=== PATIENT | female | born 1935 | race Caucasian/White ===

== ENCOUNTER 2017-06-12 23:25 | Emergency (ER) | payer MEDICARE, MEDICAID ==
[~2017-06-12 23:25] MED LIST: ACET-1008 PO; ALBU2.5V13 NEB; ARIP5TAB4 PO; ASPI-1265 PO; BIOT25008 PO; BUDE10.2 INH; CHOL2000 PO; CYAN100T PO; FURO-149 PO; GABA100C PO; LAMO100T2 PO; LOSA50TA3 PO; MULT-1074 PO; POLY17PO10 PO; PRAM0.5T3 PO; SERT50TA PO; TERB250T85 PO; TIZA-248 PO
[2017-06-12] MEDS ORDERED: normal saline 1000ML IV soln IVB ONE (23:55)
[2017-06-13] MEDS: potassium 10mEq/100ml NS w/LIDOcaine (10mg/bag) IV SCH ×2 (01:15→01:27)
[2017-06-13 01:29] LABS: CLARITY,URINE SLIGHTLY CLOUDY (Clear); COLOR,URINE AMBER (Yellow); GLUCOSE, URINE NEGATIVE (Neg); KETONES,URINE NEGATIVE (Neg); LEUKOCYTE ESTERASE ,URINE TRACE (Neg); NITRITES, URINE NEGATIVE (Neg); OCCULT BLOOD,URINE TRACE-INTACT (Neg); PH,URINE 5.5 (4.8-8.0); PROTEIN,URINE NEGATIVE (Neg); UROBILINOGEN,URINE 0.2 E.U/dL (0.2-1.0)
[2017-06-13 01:58] LABS: UA COLLECTION TYPE STRAIGHT CATH
[2017-06-13 02:06] LABS: RBC,URINE 0-2 /HPF (0-2); WBC,URINE 0-4 /HPF (0-4)
[2017-06-13 02:08] LABS: AMORPHOUS URATES 1+; BACTERIA,URINE FEW /HPF (Neg); MUCUS STRANDS MODERATE /LPF (Neg); SQUAMOUS EPITHELIAL CELL,UR FEW /LPF (FEW)
[2017-06-13 02:09] LABS: ALBUMIN 3.1 G/DL (3.4-5.0); ANION GAP 6 (8-16); BILIRUBIN,TOTAL 0.3 MG/DL (0.1-1.0); BLOOD UREA NITROGEN 33 MG/DL (7-18); BUN/CREATININE RATIO 33.3 (6.6-38.0); CALCIUM 8.6 MG/DL (8.5-10.1); CHLORIDE 98 MMOL/L (99-107); CREATININE 0.99 MG/DL (0.40-0.90); GLUCOSE 72 MG/DL (70-104); MAGNESIUM 2.2 MG/DL (1.5-2.4); PHOSPHORUS 5.2 MG/DL (2.3-4.5); POTASSIUM 4.6 MMOL/L (3.5-5.1); SODIUM 132 MMOL/L (135-145); TOTAL CARBON DIOXIDE 27.8 MMOL/L (24-32); TOTAL PROTEIN 6.2 G/DL (6.4-8.2); eGFR 54 ML/MIN
[2017-06-13 02:10] LABS: ALANINE AMINOTRANSFERASE 19 U/L (12-78); ALKALINE PHOSPHATASE 105 IU/L (46-116); ASPARTATE AMINO TRANSFERASE 9 U/L (10-37); LIPASE 73 U/L (73-393)
[2017-06-13 02:29] LABS: BASOPHILS % (AUTO) 0.5 % (0-1); EOSINOPHILS # (AUTO) 0.5 X10'3 (0-0.9); EOSINOPHILS % (AUTO) 8.3 % (0-6); HEMATOCRIT 30.8 % (35.0-45.0); HEMOGLOBIN 10.6 g/dl (12.0-16.0); LYMPHOCYTES # (AUTO) 1.5 X10'3 (1.1-4.8); LYMPHOCYTES % (AUTO) 26.4 % (21-51); MEAN CORPUSCULAR HEMOGLOBIN 32.7 PG (27.0-31.0); MEAN CORPUSCULAR HGB CONC 34.3 % (33.0-36.5); MEAN CORPUSCULAR VOLUME 95.4 FL (78-98); MEAN PLATELET VOLUME 8.7 FL (7.4-10.4); MONOCYTES # (AUTO) 0.6 X10'3 (0-0.9); MONOCYTES % (AUTO) 10.6 % (2-12); NEUTROPHILS % (AUTO) 54.2 % (42-75); PLATELET COUNT 206 X10'3 (140-440); RED BLOOD COUNT 3.22 X10'6 (4.20-5.60); RED CELL DISTRIBUTION WIDTH 14.1 % (11.5-14.5); WHITE BLOOD COUNT 5.6 X10'3 (4.5-11.0)
[2017-06-13 03:57] VITALS: BP 125/55
== END 2017-06-13 04:49 ==
LOC: ER 23:25
DX: T42.6X1A Poisoning by other antiepileptic and sedative-hypnotic drugs, accidental (unintentional), initial encounter (principal); E86.0 Dehydration; I10 Essential (primary) hypertension; I25.2 Old myocardial infarction; J44.9 Chronic obstructive pulmonary disease, unspecified; F03.90 Unspecified dementia, unspecified severity, without behavioral disturbance, psychotic disturbance, mood disturbance, and anxiety; Z88.0 Allergy status to penicillin; Z88.8 Allergy status to other drugs, medicaments and biological substances; Z79.82 Long term (current) use of aspirin; Z79.899 Other long term (current) drug therapy; Y92.89 Other specified places as the place of occurrence of the external cause
CPT/HCPCS: 36415; 80053; 81001; 83690; 83735; 84100; 85025; 87088; 93005; 99285; A6258; J7030

== ENCOUNTER 2018-01-22 12:58 | Inpatient (IN) | payer MEDICARE, MEDICAID ==
[~2018-01-22] VITALS: Ht 152.4 cm; Wt 68.0 kg
[2018-01-22] MEDS ORDERED: methylPREDNISolone sod succ 125mg/2ml vial IV ONE (13:15)
[2018-01-22] MEDS ORDERED: ipratropium/albuterol 3ml nebule NEB ONE (13:15)
[2018-01-22 13:50] LABS: BASOPHILS % (AUTO) 0 % (0-1); EOSINOPHILS % (AUTO) 0.1 % (0-6); HEMATOCRIT 33.4 % (35.0-45.0); HEMOGLOBIN 11.2 g/dl (12.0-16.0); LYMPHOCYTES # (AUTO) 0.5 X10'3 (1.1-4.8); LYMPHOCYTES % (AUTO) 6.6 % (21-51); MEAN CORPUSCULAR HEMOGLOBIN 32.1 PG (27.0-31.0); MEAN CORPUSCULAR HGB CONC 33.6 % (33.0-36.5); MEAN CORPUSCULAR VOLUME 95.6 FL (78-98); MEAN PLATELET VOLUME 8.7 FL (7.4-10.4); MONOCYTES # (AUTO) 0.2 X10'3 (0-0.9); NEUTROPHILS # (AUTO) 7.4 X10'3 (1.8-7.7); NEUTROPHILS % (AUTO) 90.3 % (42-75); PLATELET COUNT 161 X10'3 (140-440); RED BLOOD COUNT 3.49 X10'6 (4.20-5.60); WHITE BLOOD COUNT 8.2 X10'3 (4.5-11.0)
[2018-01-22 13:59] LABS: INR 0.9 INR; PARTIAL THROMBOPLASTIN TIME 28 SECONDS (22-32); PROTHROMBIN TIME 9.6 SECONDS (9.0-12.0)
[2018-01-22 14:05] LABS: ALANINE AMINOTRANSFERASE 17 U/L (12-78); ALBUMIN 3.2 G/DL (3.4-5.0); ALBUMIN/GLOBULIN RATIO 0.8 (1.1-1.5); ALKALINE PHOSPHATASE 106 IU/L (46-116); ANION GAP 7 (8-16); ASPARTATE AMINO TRANSFERASE 13 U/L (10-37); BILIRUBIN,TOTAL 0.3 MG/DL (0.1-1.0); BLOOD UREA NITROGEN 40 MG/DL (7-18); BUN/CREATININE RATIO 44.9 (6.6-38.0); CALCIUM 8.5 MG/DL (8.5-10.1); CHLORIDE 100 MMOL/L (99-107); CREATININE 0.89 MG/DL (0.40-0.90); GLUCOSE 96 MG/DL (70-104); POTASSIUM 5.1 MMOL/L (3.5-5.1); SODIUM 137 MMOL/L (135-145); eGFR 61 ML/MIN
[2018-01-22] MEDS ORDERED: iohexol 350MG/ML 100ml bottle IV ONE ×2 (14:10→17:08)
[2018-01-22 14:29] LABS: PLATELET ESTIMATE NORMAL; TOTAL CELLS COUNTED 100
[2018-01-22 17:01] LABS: D-DIMER 0.58 MG/L FEU (0-0.50)
[2018-01-22] MEDS ORDERED: fentaNYL/PF 50MCG/1 ML 2ML syringe IV ONE (17:05)
[2018-01-22] MEDS ORDERED: acetaminophen 325mg tablet PO ONE (18:45)
[2018-01-22] MEDS ORDERED: ATI0.5T PO (19:10)
[2018-01-22] MEDS ORDERED: PRIM50TA27 PO (19:10)
[2018-01-22] MEDS ORDERED: FAMO20TA8 PO (19:10)
[2018-01-22] MEDS ORDERED: MELO15TA13 PO (19:10)
[2018-01-22] MEDS ORDERED: DIVA-76 PO (19:10)
[2018-01-22] MEDS ORDERED: TRAM50TA2 PO (19:10)
[2018-01-22] MEDS ORDERED: RANO500T3 PO (19:10)
[2018-01-22] MEDS ORDERED: DOCU-28 PO (19:10)
[2018-01-22] MEDS ORDERED: DESV50TA PO (19:10)
[2018-01-22] MEDS ORDERED: ZIPR40CA2 PO (19:10)
[2018-01-22] MEDS ORDERED: LOPE-144 PO (19:35)
[2018-01-22] MEDS ORDERED: IPRA3AMP31 IH (19:35)
[2018-01-22] MEDS ORDERED: FENT-90 TOP (19:35)
[2018-01-22] MEDS ORDERED: MAGN400O6 PO (20:04)
[2018-01-22] MEDS ORDERED: CALC355O3 (20:23)
[2018-01-22] MEDS ORDERED: NITR0.4T51 SL (20:23)
[2018-01-22] MEDS ORDERED: FENT1PAT7 TD (20:23)
[2018-01-22] MEDS ORDERED: TROL85CR9 TOP (20:23)
[2018-01-22] MEDS ORDERED: temazepam 15mg capsule PO PRN (21:00)
[2018-01-22] MEDS ORDERED: mag hydrox/Alum hydrox/simeth 30ml oral suspension PO PRN (21:40)
[2018-01-22] MEDS ORDERED: acetaminophen 325mg tablet PO PRN ×2 (21:40)
[2018-01-22] MEDS ORDERED: magnesium hydroxide 30ml (MOM) UD suspension PO PRN (21:40)
[2018-01-22] MEDS ORDERED: HYDROcodone/acetaminophen 5mg/325mg tablet PO PRN (21:40)
[2018-01-22] MEDS ORDERED: albuterol 2.5 MG/3 ML nebule NEB PRN (21:40)
[2018-01-22] MEDS ORDERED: ondansetron/PF 4mg/2ml inj IV PRN (21:40)
[2018-01-22] MEDS ORDERED: HYDROcodone/acetaminophen 10/325mg tab PO PRN (21:40)
[2018-01-22] MEDS ORDERED: albuterol 2.5 MG/3 ML nebule ONE (22:23)
[2018-01-22] MEDS ORDERED: LORazepam 0.5 MG tablet PO PRN (22:40)
[2018-01-22] MEDS ORDERED: FENTANYL 25 MCG TD SCH (22:40)
[2018-01-22 22:50] VITALS: BP 95/41
[2018-01-22] MEDS: normal saline 1000ml 1,000 ML IV SCH (22:58)
[2018-01-22] MEDS: levoFLOXACIN-Levaquin 500mg/D5 100 ML IV SCH (23:47)
[2018-01-23] MEDS ORDERED: fentaNYL 25MCG/hour patch.TD72 TD SCH (00:36)
[2018-01-23 06:43] LABS: ALBUMIN 2.7 G/DL (3.4-5.0); ANION GAP 8 (8-16); BLOOD UREA NITROGEN 33 MG/DL (7-18); BUN/CREATININE RATIO 44.6 (6.6-38.0); CALCIUM 8.2 MG/DL (8.5-10.1); CHLORIDE 99 MMOL/L (99-107); CREATININE 0.74 MG/DL (0.40-0.90); GLUCOSE 179 MG/DL (70-104); SODIUM 134 MMOL/L (135-145); TOTAL CARBON DIOXIDE 27.4 MMOL/L (24-32); eGFR 75 ML/MIN
[2018-01-23 06:49] LABS: BASOPHILS % (AUTO) 0 % (0-1); EOSINOPHILS # (AUTO) 0.1 X10'3 (0-0.9); EOSINOPHILS % (AUTO) 0.9 % (0-6); HEMATOCRIT 29.9 % (35.0-45.0); HEMOGLOBIN 9.9 g/dl (12.0-16.0); LYMPHOCYTES # (AUTO) 0.5 X10'3 (1.1-4.8); LYMPHOCYTES % (AUTO) 4.8 % (21-51); MEAN CORPUSCULAR HEMOGLOBIN 31.9 PG (27.0-31.0); MEAN CORPUSCULAR HGB CONC 33.2 % (33.0-36.5); MEAN CORPUSCULAR VOLUME 96.1 FL (78-98); MEAN PLATELET VOLUME 9.7 FL (7.4-10.4); MONOCYTES # (AUTO) 0.1 X10'3 (0-0.9); MONOCYTES % (AUTO) 0.8 % (2-12); NEUTROPHILS # (AUTO) 9.7 X10'3 (1.8-7.7); NEUTROPHILS % (AUTO) 93.5 % (42-75); PLATELET COUNT 141 X10'3 (140-440); RED BLOOD COUNT 3.11 X10'6 (4.20-5.60); RED CELL DISTRIBUTION WIDTH 13.9 % (11.5-14.5); WHITE BLOOD COUNT 10.4 X10'3 (4.5-11.0)
[2018-01-23 07:00] VITALS: BP 136/67
[2018-01-23] MEDS: budesonide 0.5mg/2ml UD nebule IH SCH ×2 (07:22→19:44)
[2018-01-23] MEDS: albuterol 2.5 MG/3 ML nebule NEB SCH ×4 (07:22→19:00)
[2018-01-23] MEDS: multivitamins, therapeutics tablet PO SCH (08:00)
[2018-01-23] MEDS: famotidine 20mg tablet PO SCH ×2 (08:00→20:00)
[2018-01-23] MEDS: gabapentin 100mg capsule PO SCH ×3 (08:00→21:00)
[2018-01-23] MEDS ORDERED: enoxaparin 40mg/0.4ml syringe SUBCUT SCH (08:00)
[2018-01-23] MEDS: ziprasidone 20mg capsule PO SCH ×2 (08:00→20:00)
[2018-01-23] MEDS ORDERED: non-formulary drug (Budesonide/Formoterol Fumarate (Symbicort 160-4.5 Mcg Inhaler) 2 PUFFS INH SCH (08:00)
[2018-01-23] MEDS: venlafaxine 25mg tablet PO SCH ×2 (08:00→20:00)
[2018-01-23] MEDS: sertraline 50mg tablet PO SCH (08:00)
[2018-01-23] MEDS: divalproex sod 125mg tablet.DR PO SCH ×2 (08:00→20:00)
[2018-01-23] MEDS: furosemide 40mg tablet PO SCH (08:00)
[2018-01-23] MEDS: losartan 50mg tablet PO SCH (08:00)
[2018-01-23] MEDS: polyethylene glycol 3350 17gm powd pack PO SCH ×2 (08:00→20:00)
[2018-01-23] MEDS: docusate sod 100mg capsule PO SCH (08:00)
[2018-01-23] MEDS: MELOXICAM 15 MG PO SCH (08:00)
[2018-01-23] MEDS: magnesium hydroxide 30ml (MOM) UD suspension PO SCH ×2 (08:00→20:00)
[2018-01-23] MEDS: vitamin D (cholecalciferol) 1,000 unit tablet PO SCH (08:00)
[2018-01-23] MEDS: ranolazine 500mg SR tablet (Q12H) PO SCH ×2 (08:00→20:00)
[2018-01-23] MEDS ORDERED: ziprasidone IM 20mg inj **IM only IM ONE (08:40)
[2018-01-23] MEDS ORDERED: LORazepam 2 mg/ml vial IV PRN (08:40)
[2018-01-23] MEDS: methylPREDNISolone sod succ 125mg/2ml vial IV SCH ×3 (10:49→21:00)
[2018-01-23] MEDS: normal saline 1000ml 1,000 ML IV SCH ×2 (10:49→17:37)
[2018-01-23] MEDS: levoFLOXACIN-Levaquin 500mg/D5 100 ML IV SCH (10:49)
[2018-01-23 11:00] VITALS: BP 94/45
[2018-01-23 20:00] VITALS: BP 149/74
[2018-01-23] MEDS: lactobacillus rhamnosus 10,000 MMU CELLS/CAPSULE PO SCH (20:00)
[2018-01-23] MEDS ORDERED: pramipexole 0.25mg tablet PO SCH (21:00)
[2018-01-23] MEDS ORDERED: primidone 50mg tablet PO SCH (21:00)
[2018-01-23 22:30] VITALS: BP 142/72
[2018-01-24] VITALS: BP 133/73
[2018-01-24] MEDS ORDERED: FENTANYL CADD WASTE DOCUMENT MC ONE (03:00)
[2018-01-24] MEDS: normal saline 1000ml 1,000 ML IV SCH (04:06)
[2018-01-24] MEDS: budesonide 0.5mg/2ml UD nebule IH SCH (07:45)
[2018-01-24] MEDS: albuterol 2.5 MG/3 ML nebule NEB SCH ×3 (07:45→15:00)
[2018-01-24] MEDS: furosemide 40mg tablet PO SCH (07:55)
[2018-01-24] MEDS: ziprasidone 20mg capsule PO SCH (07:55)
[2018-01-24] MEDS: methylPREDNISolone sod succ 125mg/2ml vial IV SCH ×2 (07:55→13:34)
[2018-01-24] MEDS: ranolazine 500mg SR tablet (Q12H) PO SCH (07:56)
[2018-01-24] MEDS: sertraline 50mg tablet PO SCH (07:56)
[2018-01-24] MEDS: venlafaxine 25mg tablet PO SCH (07:57)
[2018-01-24] MEDS: levoFLOXACIN-Levaquin 500mg/D5 100 ML IV SCH (07:57)
[2018-01-24] MEDS: divalproex sod 125mg tablet.DR PO SCH (07:58)
[2018-01-24] MEDS: gabapentin 100mg capsule PO SCH ×2 (07:59→13:30)
[2018-01-24 08:00] VITALS: BP 136/66
[2018-01-24] MEDS: MELOXICAM 15 MG PO SCH (08:00)
[2018-01-24] MEDS: polyethylene glycol 3350 17gm powd pack PO SCH (08:00)
[2018-01-24] MEDS ORDERED: enoxaparin 30mg/0.3ml syringe SUBCUT SCH (08:00)
[2018-01-24] MEDS: lactobacillus rhamnosus 10,000 MMU CELLS/CAPSULE PO SCH (08:00)
[2018-01-24] MEDS: vitamin D (cholecalciferol) 1,000 unit tablet PO SCH (08:00)
[2018-01-24] MEDS: magnesium hydroxide 30ml (MOM) UD suspension PO SCH (08:00)
[2018-01-24] MEDS: docusate sod 100mg capsule PO SCH (08:00)
[2018-01-24] MEDS: multivitamins, therapeutics tablet PO SCH (08:00)
[2018-01-24] MEDS: losartan 50mg tablet PO SCH (08:00)
[2018-01-24] MEDS: famotidine 20mg tablet PO SCH (08:00)
[2018-01-24 11:35] VITALS: BP 155/77
[2018-01-24] MEDS ORDERED: LEVO500T89 PO (14:27)
[2018-01-24] MEDS ORDERED: METH125V13 IM (14:27)
[2018-01-25] MEDS ORDERED: fentaNYL 25MCG/hour patch.TD72 TD SCH (09:00)
[2018-01-25] MEDS ORDERED: levoFLOXACIN 500mg tablet PO SCH (11:00)
== END 2018-01-24 18:09 | DRG 189 ==
LOC: ER 12:59 → ED HOLD 21:37 → SUR 3N 22:52
PROVIDERS: ADMIT Hospitalist; ATTEND Family Medicine
PROC: B32T1ZZ Computerized Tomography (CT Scan) of Left Pulmonary Artery using Low Osmolar Contrast (ICD-10-PCS; principal; 2018-01-22)
PROC: B3201ZZ Computerized Tomography (CT Scan) of Thoracic Aorta using Low Osmolar Contrast (ICD-10-PCS; 2018-01-22)
PROC: B32S1ZZ Computerized Tomography (CT Scan) of Right Pulmonary Artery using Low Osmolar Contrast (ICD-10-PCS; 2018-01-22)
DX: J96.01 Acute respiratory failure with hypoxia (principal); J18.9 Pneumonia, unspecified organism; J44.1 Chronic obstructive pulmonary disease with (acute) exacerbation; E46 Unspecified protein-calorie malnutrition; F02.81 Dementia in other diseases classified elsewhere, unspecified severity, with behavioral disturbance; F05 Delirium due to known physiological condition; J44.0 Chronic obstructive pulmonary disease with (acute) lower respiratory infection; D64.9 Anemia, unspecified; E86.0 Dehydration; G30.9 Alzheimer's disease, unspecified; K21.9 Gastro-esophageal reflux disease without esophagitis; M81.0 Age-related osteoporosis without current pathological fracture; Z66 Do not resuscitate; F32.9 Major depressive disorder, single episode, unspecified; K57.90 Diverticulosis of intestine, part unspecified, without perforation or abscess without bleeding; M19.90 Unspecified osteoarthritis, unspecified site; F20.9 Schizophrenia, unspecified; F22 Delusional disorders; F41.9 Anxiety disorder, unspecified; G40.909 Epilepsy, unspecified, not intractable, without status epilepticus; I10 Essential (primary) hypertension; I25.2 Old myocardial infarction; Z90.49 Acquired absence of other specified parts of digestive tract; Z88.0 Allergy status to penicillin; Z88.6 Allergy status to analgesic agent; Z88.8 Allergy status to other drugs, medicaments and biological substances; Z79.51 Long term (current) use of inhaled steroids; Z90.710 Acquired absence of both cervix and uterus; Z79.82 Long term (current) use of aspirin; Z79.899 Other long term (current) drug therapy; Z98.891 History of uterine scar from previous surgery; Z86.73 Personal history of transient ischemic attack (TIA), and cerebral infarction without residual deficits; Z84.1 Family history of disorders of kidney and ureter; Z82.3 Family history of stroke; Z82.49 Family history of ischemic heart disease and other diseases of the circulatory system; Z80.9 Family history of malignant neoplasm, unspecified; Z68.29 Body mass index [BMI] 29.0-29.9, adult
CPT/HCPCS: 36415; 71045; 71275; 80048; 80053; 83605; 83880; 84484; 85025; 85379; 85610; 85730; 87040; 87070; 93005; 94640; 94760; 96374; 99285; A6250; J1650; J1956; J2060; J2930; J3010; J3486; J7030; J7626; Q9967